=== PATIENT | female | born 1970 | race Caucasian/White ===

== ENCOUNTER 2017-04-14 12:25 | Emergency (ER) | payer SELFPAY ==
[~2017-04-14] VITALS: Ht 162.6 cm; Wt 58.5 kg
[~2017-04-14 12:25] MED LIST: FIORIC PO; LISI2.5T3 PO; MOTI25CH PO; PROM25TA5 PO; ZOFR4TAB3 PO
[2017-04-14 12:30] VITALS: BP 203/101; PULSE 77; RESP 15; TEMP 98.2; O2SAT 98
[2017-04-14 13:31] VITALS: BP 182/111; PULSE 76; RESP 14; TEMP 98.5; O2SAT 99
[2017-04-14] MEDS ORDERED: ONDA1TAB16 PO (13:37)
[2017-04-14] MEDS ORDERED: SODIUM CHLOR 0.9% 1000 ML INJ 1,000 ML IV ONE (13:40)
[2017-04-14] MEDS ORDERED: diphenhydrAMINE HCL 50 MG/ML VIAL IVP ONE (13:45)
[2017-04-14] MEDS ORDERED: SODIUM CHLORIDE 0.9% FLUSH 10 ML FLUSH IVF PRN (13:45)
[2017-04-14] MEDS ORDERED: KETOROLAC TROMETHAMINE 30 MG/ML (IVP) VIAL IVP ONE (13:45)
[2017-04-14] MEDS ORDERED: PROCHLORPERAZINE INJ 10 MG/2 ML VIAL IVP ONE (13:45)
--- NOTE | 2017-04-14 13:47 | PD ---
HPI Chief Complaint: Headache Time Seen by Provider: 13:42 Travel History International Travel<30 days: No Contact w/Intl Traveler<30days: No Traveled to known affect area: No History of Present Illness HPI 47 YO F with PMH of HTN, migraine THAO presents to the ED for evaluation of 5 day history of headache. Gradual onset while working in the yard. Endorses photophobia, N/V. Patient states this headache is similar to previous migraine. Denies vision changes, facial droop, difficulties with word finding. Patient states that her blood pressure "hasn't needed to be treated in a while." States that Imitrex causes extreme N/V. Treated at home with Tylenol with no improvement of symptoms. PFSH Past Medical History Anemia: Yes (GESTATIONAL) Diminished Hearing: No Headaches: Yes Hypertension: Yes Migraines: Yes Pneumonia: Yes ("WALKING") ?: Not : 4 Para: 3 : 1 Tubal Ligation: Yes Past Surgical History Section: Yes (X3) Other Surgery: Yes (RIGHT FOOT CALCANEOUS FX REPAIR: 1 PLATE, 9 SCREWS, CONCRETE) Social History Alcohol Use: Yes (OCCASIONAL) Tobacco Use: No Substance Use: No Allergies-Medications (Allergen,Severity, Reaction): Coded Allergies: No Known Allergies (Verified , 04/14/17) Reported Meds & Prescriptions Reported Meds & Active Scripts Active Lisinopril 5 Mg Tab 5 Mg PO BID Reported Ondansetron (Ondansetron HCl) 4 Mg Tab 4 Mg PO Q6HR Review of Systems Except as stated in HPI: all other systems reviewed are Neg Physical Exam Narrative GENERAL: Well-nourished, well-developed white female in NAD. Lying on the stretcher with her eyes closed. SKIN: Focused skin assessment warm/dry. HEAD: Normocephalic. EYES: No scleral icterus. No injection or drainage. PERRLA. EOMI. NECK: Supple, trachea midline. No JVD or lymphadenopathy. CARDIOVASCULAR: Regular rate and rhythm without murmurs, gallops, or rubs. RESPIRATORY: Breath sounds clear and equal bilaterally. No accessory muscle use. GASTROINTESTINAL: Abdomen soft, non-tender, nondistended. Active bowel sounds. MUSCULOSKELETAL: No cyanosis, or edema. Ambulatory with a normal gait. NEUROLOGICAL: Awake and alert. Cranial nerves II through XII intact. Motor and sensory grossly within normal limits. 5/5 muscle strength in all muscle groups. Normal speech. BACK: Nontender without obvious deformity. No CVA tenderness. Data Data Last Documented VS Vital Signs Date Time Temp Pulse Resp B/P Pulse Ox O2 Delivery O2 Flow Rate FiO2 04/14/17 15:20 73 14 194/94 98 Room Air 04/14/17 13:31 98.5 Orders Ecg Monitoring (04/14/17 13:40) Iv Access Insert/Monitor (04/14/17 13:40) Oximetry (04/14/17 13:40) Sodium Chloride 0.9% Flush (Ns Flush) (04/14/17 13:45) Ketorolac Inj (Toradol Inj) (04/14/17 13:45) Diphenhydramine Inj (Benadryl Inj) (04/14/17 13:45) Sodium Chlor 0.9% 1000 Ml Inj (Ns 1000 M (04/14/17 13:40) Prochlorperazine Inj (Compazine Inj) (04/14/17 13:45) Hydromorphone Pf Inj (Dilaudid Pf Inj) (04/14/17 15:00) Lisinopril (Prinivil) (04/14/17 15:45) MDM Medical Decision Making Medical Screen Exam Complete: Yes Emergency Medical Condition: Yes Differential Diagnosis Cephalgia versus migraine versus hypertension versus ICH versus other Narrative Course 47 YO F with PMH of HTN, migraine THAO presents to the ED for evaluation of 5 day history of headache. Gradual onset while working in the yard. Endorses photophobia, N/V. Patient states this headache is similar to previous migraine. Denies vision changes, facial droop, difficulties with word finding. Patient states that her blood pressure "hasn't needed to be treated in a while." Vitals reviewed. Patient's hypertensive on presentation. Physical exam reveals a nontoxic-appearing white female in no acute distress. She is lying on her side on the stretcher with her eyes closed. No focal neural deficits. I discussed the possibility of intracranial hemorrhage. The patient states that her symptoms are very similar to previous migraine headaches. She states that she's had several CTs in the past and opted to forego this evaluation at that time. IV was established. She was administered 1 L normal saline, Compazine, Benadryl and Toradol. On recheck the patient reveals only mild improvement of her symptoms. She was administered 0.5 mg of Dilaudid. On recheck she is sitting up in the bed and states that her symptoms are nearly completely resolved. I discussed the patient's ongoing hypertension with Dr. Robles. She recommends restarting lisinopril with close follow-up by the primary care provider. I discussed the plan of care with the patient. She is agreeable. She was administered 5 mg lisinopril in the ED. She is prescribed 5 mg lisinopril twice a day 30 days. She is instructed to monitor her blood pressure and follow up with the primary care provider this week, return to the ED should headache or stroke symptoms occur. She indicated understanding of instructions and is agreeable to the care plan. The patient is stable and discharged home. Diagnosis Primary Impression: Migraine Qualified Code: G43.909 - Migraine without status migrainosus, not intractable , unspecified migraine type Additional Impression: Chronic hypertension Referrals: Primary Care Physician Patient Instructions: Chronic Hypertension (ED), General Instructions, Migraine Headache (DC) Additional Instructions: Rest, hydrate. Avoid known stressors. Take lisinopril as prescribed. Monitor your BP as discussed and present to your primary care provider. Follow up with the primary care provider this week. Return to the ED for any urgent or emergent medical condition. Med/Other Pt SpecificInfo: Prescription(s) given Scripts Lisinopril 5 Mg Tab5 Mg PO BID #60 TAB Ref 0 Prov:Hyacinth Otoole MD 04/14/17 Disposition: 01 DISCHARGE HOME Condition: Stable Annita Escoto Apr 14, 2017 13:47
[2017-04-14] MEDS ORDERED: HYDROmorphone HCL PF 1 MG/ML VIAL IVS ONE (15:00)
[2017-04-14 15:08] VITALS: O2SAT 99
[2017-04-14 15:20] VITALS: BP 194/94; PULSE 73; RESP 14; O2SAT 98
[2017-04-14] MEDS ORDERED: LISI-519 PO (15:41)
[2017-04-14] MEDS ORDERED: LISINOPRIL 5 MG TAB PO ONE (15:45)
== END 2017-04-14 16:10 | disposition home or self-care (01) ==
LOC: NEPD 12:25
DX: G43.909 Migraine, unspecified, not intractable, without status migrainosus (principal); I10 Essential (primary) hypertension
CPT/HCPCS: 96361; 96374; 96375; 99284; J0780; J1170; J1200; J1885; J7030

== ENCOUNTER 2017-08-27 15:25 | Emergency (ER) | payer SELFPAY ==
[~2017-08-27] VITALS: Ht 162.6 cm; Wt 56.5 kg
[~2017-08-27 15:25] MED LIST changes: -FIORIC PO; +LISI-519 PO; -LISI2.5T3 PO; -MOTI25CH PO; +ONDA4TAB15 PO; -PROM25TA5 PO; -ZOFR4TAB3 PO
[2017-08-27 15:26] VITALS: BP 189/104; PULSE 89; RESP 20; TEMP 98.7; O2SAT 100
[2017-08-27 16:18] LABS: AUTOMATED NEUTROPHIL # 9.9 TH/MM3 (1.8-7.7); BASOPHIL # 0.1 TH/MM3 (0-0.2); BASOPHIL % 0.8 % (0.0-2.0); EOSINOPHIL # 0.3 TH/MM3 (0-0.4); EOSINOPHIL % 2.5 % (0.0-4.0); HEMATOCRIT 38.9 % (35.0-46.0); HEMO FLAGS DIFF FINAL; LYMPH % 14.6 % (9.0-44.0); LYMPHOCYTE # 1.9 TH/MM3 (1.0-4.8); MEAN CELL VOLUME 79.7 FL (80.0-100.0); MEAN CORPUSCULAR HEMOGLOBIN 26.2 PG (27.0-34.0); MEAN CORPUSCULAR HGB CONC 32.8 % (32.0-36.0); MONO % 6.4 % (0.0-8.0); NEUT % 75.7 % (16.0-70.0); PLATELET COUNT 359 TH/MM3 (150-450); RED BLOOD COUNT 4.88 MIL/MM3 (4.00-5.30); RED CELL DISTRIBUTION WIDTH 15.6 % (11.6-17.2); WHITE BLOOD COUNT 13.1 TH/MM3 (4.0-11.0)
[2017-08-27 16:29] LABS: BACTERIA, URINE RARE /hpf; BLOOD, URINE NEG (NEG); COMMENT (UR) CULT NOT INDICATED; CULTURE IF INDICATED CULT NOT INDICATED; GLUCOSE,URINE NEG (NEG); HYALINE CAST, URINE 1 /lpf (RARE); KETONE, URINE NEG (NEG); MUCUS URINE FEW /lpf (OCC); NITRITE,URINE NEG (NEG); SQUAMOUS EPITHELIAL CELL URINE 5 /hpf (0-5); URINE COLOR YELLOW (YELLW/STRAW)
[2017-08-27 16:41] LABS: APTT (PATIENT) 24.4 SEC (24.3-30.1); INTERNATIONAL NORMALIZED RATIO 0.9 RATIO
[2017-08-27 16:45] LABS: ALKALINE PHOSPHATASE 112 U/L (45-117); ALT (GPT) 17 U/L (10-53); ANION GAP 8 MEQ/L (5-15); AST (GOT) 20 U/L (15-37); BICARBONATE 27.7 MEQ/L (21.0-32.0); BLOOD UREA NITROGEN 23 MG/DL (7-18); CHLORIDE 101 MEQ/L (98-107); GLOMERULAR FILTRATION RATE 88 ML/MIN (>89); SODIUM (NA) 137 MEQ/L (136-145); TOTAL BILIRUBIN ADULT 0.2 MG/DL (0.2-1.0)
[2017-08-27] MEDS ORDERED: SODIUM CHLOR 0.9% 1000 ML INJ 1,000 ML IV ONE (17:00)
[2017-08-27] MEDS ORDERED: ONDANSETRON HCL 4 MG/2 ML VIAL IV PUSH ONE (17:00)
[2017-08-27] MEDS ORDERED: MORPHINE SULFATE 4 MG/ML INJ IV PUSH ONE (17:00)
[2017-08-27 17:07] VITALS: BP 213/99; PULSE 81; RESP 18; O2SAT 100
[2017-08-27 18:00] VITALS: BP 203/90; PULSE 80; RESP 19; O2SAT 98
--- NOTE | 2017-08-27 18:10 | RADRPT ---
EXAM DATE/TIME: 08/27/2017 17:29 1[facility] COMPARISON: No previous studies available for comparison. INDICATIONS : Right upper quadrant pain. MEDICAL HISTORY : Hypertension. Anemia. Right upper quadrant pain. SURGICAL HISTORY : Tubal ligation. section. ENCOUNTER: Initial ACUITY: 3 days PAIN SCORE: 6/10 LOCATION: Right upper quadrant MEASUREMENTS: LIVER: 16.8 cm length COMMON DUCT: 5 mm RIGHT KIDNEY: 11.4 x 5.5 x 4.3 cm FINDINGS: LIVER: Normal echotexture without focal lesion or ductal dilatation. COMMON DUCT: No intraluminal mass or stone visualized. GALLBLADDER: Contains no stones, demonstrates no wall thickening or pericholecystic fluid. PANCREAS: The visualized portions are within normal limits. RIGHT KIDNEY: No evidence of hydronephrosis, stone, or mass. CONCLUSION: Unremarkable exam. The gallbladder is within normal limits with no evidence of cholel ithiasis. Esvin Zamora MD on August 27, 2017 at 18:07 Board Certified Radiologist. This report was verified electronically.
--- NOTE | 2017-08-27 18:16 | PD ---
HPI Chief Complaint: Abdominal Pain Time Seen by Provider: 16:46 Travel History International Travel<30 days: No Contact w/Intl Traveler<30days: No Traveled to known affect area: No History of Present Illness HPI Is a 47 year-old woman who presents to the emergency department complaining of abdominal pain. She describes a dull aching pain is been ongoing for the past 3 days or so. Initially was intermittent is been constant now. She's had episodes of nausea and vomiting with it. One episode of loose stools. She's never had previous similar symptoms. Denies any history of GI problems. She's had 3 C-sections but no other abdominal surgeries. No other complaints. History Past Medical History Narrative Medical Migraines Tetanus Vaccination: > 5 Years Influenza Vaccination: No : 4 Para: 3 Social History Alcohol Use: Yes (OCCASIONAL) Tobacco Use: No Allergies-Medications (Allergen,Severity, Reaction): Coded Allergies: No Known Allergies (Verified Adverse Reaction, Unknown, 08/27/17) Reported Meds & Prescriptions Reported Meds & Active Scripts Active No Active Prescriptions or Reported Medications Review of Systems Except as stated in HPI: all other systems reviewed are Neg Physical Exam Narrative GENERAL: 47 year-old woman, appears uncomfortable but nontoxic. SKIN: Focused skin assessment warm/dry. HEAD: Atraumatic. Normocephalic. NECK: Trachea midline. No JVD. CARDIOVASCULAR: Regular rate and rhythm. No murmur appreciated. RESPIRATORY: No accessory muscle use. Clear to auscultation. Breath sounds equal bilaterally. GASTROINTESTINAL: Abdomen is flat and soft. Moderate epigastric and right upper quadrant tenderness. No rebound or guarding. MUSCULOSKELETAL: No obvious deformities. No clubbing. No cyanosis. No edema. NEUROLOGICAL: Awake and alert. No obvious cranial nerve deficits. Motor grossly within normal limits. Normal speech. PSYCHIATRIC: Appropriate mood and affect; insight and judgment normal. Data Data Last Documented VS Vital Signs Date Time Temp Pulse Resp B/P (MAP) Pulse Ox O2 Delivery O2 Flow Rate FiO2 08/27/17 18:00 80 19 203/90 (127) 98 Room Air 08/27/17 15:26 98.7 Orders Orders Complete Blood Count With Diff (08/27/17 15:44) Comprehensive Metabolic Panel (08/27/17 15:44) Lipase (08/27/17 15:44) Prothrombin Time / Inr (Pt) (08/27/17 15:44) Act Partial Throm Time (Ptt) (08/27/17 15:44) Urinalysis - C+S If Indicated (08/27/17 15:44) Us Abdomen Gallbladder (08/27/17 ) Morphine Inj (Morphine Inj) (08/27/17 17:00) Ondansetron Inj (Zofran Inj) (08/27/17 17:00) Sodium Chlor 0.9% 1000 Ml Inj (Ns 1000 M (08/27/17 17:00) Ct Abd/Pel W Iv Contrast(Rout) (08/27/17 ) Electrocardiogram (08/27/17 ) Troponin I (08/27/17 18:16) Iohexol 350 Inj (Omnipaque 350 Inj) (08/27/17 18:41) Labs Laboratory Tests Test 08/27/17 15:55 White Blood Count 13.1 TH/MM3 Red Blood Count 4.88 MIL/MM3 Hemoglobin 12.8 GM/DL Hematocrit 38.9 % Mean Corpuscular Volume 79.7 FL Mean Corpuscular Hemoglobin 26.2 PG Mean Corpuscular Hemoglobin Concent 32.8 % Red Cell Distribution Width 15.6 % Platelet Count 359 TH/MM3 Mean Platelet Volume 7.3 FL Neutrophils (%) (Auto) 75.7 % Lymphocytes (%) (Auto) 14.6 % Monocytes (%) (Auto) 6.4 % Eosinophils (%) (Auto) 2.5 % Basophils (%) (Auto) 0.8 % Neutrophils # (Auto) 9.9 TH/MM3 Lymphocytes # (Auto) 1.9 TH/MM3 Monocytes # (Auto) 0.8 TH/MM3 Eosinophils # (Auto) 0.3 TH/MM3 Basophils # (Auto) 0.1 TH/MM3 CBC Comment DIFF FINAL Differential Comment Prothrombin Time 10.0 SEC Prothromb Time International Ratio 0.9 RATIO Activated Partial Thromboplast Time 24.4 SEC Urine Color YELLOW Urine Turbidity HAZY Urine pH 6.0 Urine Specific [place] 1.027 Urine Protein TRACE mg/dL Urine Glucose (UA) NEG mg/dL Urine Ketones NEG mg/dL Urine Occult Blood NEG Urine Nitrite NEG Urine Bilirubin NEG Urine Urobilinogen LESS THAN 2.0 MG/DL Urine Leukocyte Esterase NEG Urine RBC 1 /hpf Urine WBC 2 /hpf Urine Squamous Epithelial Cells 5 /hpf Urine Bacteria RARE /hpf Urine Hyaline Casts 1 /lpf Urine Mucus FEW /lpf Microscopic Urinalysis Comment CULT NOT INDICATED Blood Urea Nitrogen 23 MG/DL Creatinine 0.71 MG/DL Random Glucose 107 MG/DL Total Protein 7.8 GM/DL Albumin 3.8 GM/DL Calcium Level 8.8 MG/DL Alkaline Phosphatase 112 U/L Aspartate Amino Transf (AST/SGOT) 20 U/L Alanine Aminotransferase (ALT/SGPT) 17 U/L Total Bilirubin 0.2 MG/DL Sodium Level 137 MEQ/L Potassium Level 4.0 MEQ/L Chloride Level 101 MEQ/L Carbon Dioxide Level 27.7 MEQ/L Anion Gap 8 MEQ/L Estimat Glomerular Filtration Rate 88 ML/MIN Troponin I LESS THAN 0.02 NG/ML Lipase 166 U/L [facility] Medical Decision Making Medical Screen Exam Complete: Yes Emergency Medical Condition: Yes Interpretation(s) LABS: CBC is remarkable for mild leukocytosis. CMP is overall unremarkable. Lipase is normal. Coags are unremarkable. UA is unremarkable. Right upper quadrant ultrasound: Negative. My review of EKG: Normal sinus rhythm at a rate of 72, minimal lateral ST changes, potentially concerning but nonspecific, no definite evidence of acute ischemia. Differential Diagnosis Cholecystitis, pancreatitis, gastritis, appendicitis, enteritis, other Narrative Course Medical decision making INITIAL cause a 47 year-old woman presents to the emergency department complaining of severe abdominal pain and mid upper abdomen. With a tender right upper quadrant. Possibly cholecystitis. Gallbladder ultrasound unremarkable. Pain is fairly severe. Time course isn't really fit for dissection. Possible renal stone. We'll check CT and lab in addition to the ultrasound. Symptoms are not really consistent with acute coronary syndrome given the diagnostic uncertainty we'll broaden her testing included EKG and troponin. EKG shows some nonspecific lateral changes. Diagnosis Primary Impression: Abdominal pain Additional Impression: Gastritis Additional Instructions: Take omeprazole as prescribed. Use Lortab sparingly as needed for severe pain. Follow-up with a GI doctor the first available appointment. Return to the emergency department for any worsening pain, or any other new or worsening symptoms. Med/Other Pt SpecificInfo: Prescription(s) given Scripts Hydrocodone-Acetaminophen (Lortab) 5-325 Mg Tab 1-2 TAB PO Q6H Y for PAIN, #12 TAB 0 Refills Prov: Ruslan Petersen MD 08/27/17 Omeprazole (Omeprazole) 40 Mg Cap 40 MG PO DAILY, #30 CAP 0 Refills Prov: Ruslan Petersen MD 08/27/17 Disposition: 01 DISCHARGE HOME Condition: Stable Ruslan Petersen MD Aug 27, 2017 18:16
[2017-08-27] MEDS ORDERED: IOHEXOL 350 MG/ML 10 ML VIAL (for RAD DIAG) IVCONTRAST ONE (18:41)
[2017-08-27] MEDS ORDERED: HYDR-3533 PO (19:17)
[2017-08-27] MEDS ORDERED: OMEP40CA2 PO (19:17)
--- NOTE | 2017-08-27 19:42 | RADRPT ---
EXAM DATE/TIME: 08/27/2017 18:37 [facility] COMPARISON: CT ABDOMEN & PELVIS W/O CONTRAST, January 24, 2012, 10:33. INDICATIONS : Abdominal pain, nausea, vomiting. Worse after eating. IV CONTRAST: 95 cc Omnipaque 350 (iohexol) IV ORAL CONTRAST: No oral contrast ingested. RADIATION DOSE: 5.02 CTDIvol (mGy) MEDICAL HISTORY : Hypertension. SURGICAL HISTORY : Tubal ligation. C sections ENCOUNTER: Initial ACUITY: 3 days PAIN SCALE: 10/10 LOCATION: Right upper quadrant TECHNIQUE: Volumetric scanning of the abdomen and pelvis was performed. Using automated exposure control and ad justment of the mA and/or kV according to patient size, radiation dose was kept as low as reasonably achievable to obtain optimal diagnostic quality images. DICOM format image data is available electro nically for review and comparison. FINDINGS: LOWER LUNGS: The visualized lower lungs are clear. LIVER: Homogeneous density without lesion. There is no dilation of the biliary tree. No calcified gallston es. SPLEEN: Normal size without lesion. PANCREAS: Within normal limits. KIDNEYS: Normal in size and shape. There is no mass, stone or hydronephrosis. ADRENAL GLANDS: Within normal limits. VASCULAR: There is no aortic aneurysm. BOWEL/MESENTERY: No oral contrast was given to imaging the sensitivity. There are multiple loops of nondilated air-con taining small bowel several small air-fluid levels. Gas and stool is noted throughout the colon. Ther e is no free air or fluid. There are scattered diverticuli noted. There is no free intraperitoneal ai r or fluid. ABDOMINAL WALL: Within normal limits. RETROPERITONEUM: There is no lymphadenopathy. BLADDER: No wall thickening or mass. REPRODUCTIVE: The uterus is prominent with hyperechoic mass in the right side of the uterus measuring up to 3.8 x 3 .3 cm in diameter. INGUINAL: There is no lymphadenopathy or hernia. MUSCULOSKELETAL: Within normal limits for patient age. CONCLUSION: 1. Mildly nonspecific, nonobstructed bowel gas pattern which may represent a mild ileus or gastroente ritis. 2. Prominent uterus with high density mass on the right most characteristic of a leiomyoma. 3. Mild diverticulosis. Esvin Zamora MD on August 27, 2017 at 19:36 Board Certified Radiologist. This report was verified electronically.
[2017-08-27 19:51] VITALS: BP 198/106; PULSE 98; RESP 19; O2SAT 98
--- NOTE | 2017-08-27 19:56 | PD ---
Physical Exam Date Seen by Provider: Aug 27, 2017 Time Seen by Provider: 19:52 Narrative Accepted in transfer of care from Dr. Petersen GENERAL: Well-developed well-nourished female in no acute distress no respiratory distress SKIN: Warm and dry. HEAD: Normocephalic. EYES: No scleral icterus. No injection or drainage. NECK: Supple, trachea midline. No JVD or lymphadenopathy. CARDIOVASCULAR: Regular rate and rhythm without murmurs, gallops, or rubs. RESPIRATORY: Breath sounds equal bilaterally. No accessory muscle use. GASTROINTESTINAL: Abdomen soft, reproducible epigastric tenderness to palpation without guarding or rebound, nondistended. MUSCULOSKELETAL: No cyanosis, or edema. BACK: Nontender without obvious deformity. No CVA tenderness. Data Data Last Documented VS Vital Signs Date Time Temp Pulse Resp B/P (MAP) Pulse Ox O2 Delivery O2 Flow Rate FiO2 08/27/17 21:06 178/91 (120) 08/27/17 19:51 98 19 98 Room Air 08/27/17 15:26 98.7 Orders Orders Complete Blood Count With Diff (08/27/17 15:44) Comprehensive Metabolic Panel (08/27/17 15:44) Lipase (08/27/17 15:44) Prothrombin Time / Inr (Pt) (08/27/17 15:44) Act Partial Throm Time (Ptt) (08/27/17 15:44) Urinalysis - C+S If Indicated (08/27/17 15:44) Us Abdomen Gallbladder (08/27/17 ) Morphine Inj (Morphine Inj) (08/27/17 17:00) Ondansetron Inj (Zofran Inj) (08/27/17 17:00) Sodium Chlor 0.9% 1000 Ml Inj (Ns 1000 M (08/27/17 17:00) Ct Abd/Pel W Iv Contrast(Rout) (08/27/17 ) Electrocardiogram (08/27/17 ) Troponin I (08/27/17 18:16) Iohexol 350 Inj (Omnipaque 350 Inj) (08/27/17 18:41) Pantoprazole Inj (Protonix Inj) (08/27/17 20:00) Ketorolac Inj (Toradol Inj) (08/27/17 20:00) Ondansetron Odt (Zofran Odt) (08/27/17 21:15) Oxycodone-Acetamin 5-325 Mg (Percocet (08/27/17 21:15) Ed Discharge Order (08/27/17 21:08) Labs Laboratory Tests Test 08/27/17 15:55 White Blood Count 13.1 TH/MM3 Red Blood Count 4.88 MIL/MM3 Hemoglobin 12.8 GM/DL Hematocrit 38.9 % Mean Corpuscular Volume 79.7 FL Mean Corpuscular Hemoglobin 26.2 PG Mean Corpuscular Hemoglobin Concent 32.8 % Red Cell Distribution Width 15.6 % Platelet Count 359 TH/MM3 Mean Platelet Volume 7.3 FL Neutrophils (%) (Auto) 75.7 % Lymphocytes (%) (Auto) 14.6 % Monocytes (%) (Auto) 6.4 % Eosinophils (%) (Auto) 2.5 % Basophils (%) (Auto) 0.8 % Neutrophils # (Auto) 9.9 TH/MM3 Lymphocytes # (Auto) 1.9 TH/MM3 Monocytes # (Auto) 0.8 TH/MM3 Eosinophils # (Auto) 0.3 TH/MM3 Basophils # (Auto) 0.1 TH/MM3 CBC Comment DIFF FINAL Differential Comment Prothrombin Time 10.0 SEC Prothromb Time International Ratio 0.9 RATIO Activated Partial Thromboplast Time 24.4 SEC Urine Color YELLOW Urine Turbidity HAZY Urine pH 6.0 Urine Specific [place] 1.027 Urine Protein TRACE mg/dL Urine Glucose (UA) NEG mg/dL Urine Ketones NEG mg/dL Urine Occult Blood NEG Urine Nitrite NEG Urine Bilirubin NEG Urine Urobilinogen LESS THAN 2.0 MG/DL Urine Leukocyte Esterase NEG Urine RBC 1 /hpf Urine WBC 2 /hpf Urine Squamous Epithelial Cells 5 /hpf Urine Bacteria RARE /hpf Urine Hyaline Casts 1 /lpf Urine Mucus FEW /lpf Microscopic Urinalysis Comment CULT NOT INDICATED Blood Urea Nitrogen 23 MG/DL Creatinine 0.71 MG/DL Random Glucose 107 MG/DL Total Protein 7.8 GM/DL Albumin 3.8 GM/DL Calcium Level 8.8 MG/DL Alkaline Phosphatase 112 U/L Aspartate Amino Transf (AST/SGOT) 20 U/L Alanine Aminotransferase (ALT/SGPT) 17 U/L Total Bilirubin 0.2 MG/DL Sodium Level 137 MEQ/L Potassium Level 4.0 MEQ/L Chloride Level 101 MEQ/L Carbon Dioxide Level 27.7 MEQ/L Anion Gap 8 MEQ/L Estimat Glomerular Filtration Rate 88 ML/MIN Troponin I LESS THAN 0.02 NG/ML Lipase 166 U/L [facility] Medical Record Reviewed: Yes Supervised Visit with SWETA: No Interpretation(s) CBC & BMP Diagram 08/27/17 15:55 Total Protein 7.8, Albumin 3.8, Calcium Level 8.8, Alkaline Phosphatase 112, Aspartate Amino Transf (AST/SGOT) 20, Alanine Aminotransferase (ALT/SGPT) 17, Total Bilirubin 0.2 Vital Signs Date Time Temp Pulse Resp B/P (MAP) Pulse Ox O2 Delivery O2 Flow Rate FiO2 08/27/17 19:51 98 19 198/106 (136) 98 Room Air 08/27/17 18:00 80 19 203/90 (127) 98 Room Air 08/27/17 17:07 81 18 213/99 (137) 100 Room Air 08/27/17 15:26 98.7 89 20 189/104 (132) 100 Room Air Differential Diagnosis Accepted in transfer of care from Dr. Petersen please refer to his dictation Narrative Course Accepted in transfer of care from Dr. Petersen for follow-up of pending CT reading with plan to discharge to home; CT reveals mild ileus or changes for gastroenteritis gallbladder identified as unremarkable; on reexamination patient remains tender in the epigastric area with slight increase bowel sounds without tinkles or groin for obstruction; patient has had normal bowel movements and flatus. Blood pressure reading checked as noted to be elevated and patient reports she generally has a marked blood pressure elevation response to pain and currently pain is 5/10 in intensity after IV morphine times one dose. Ultrasound was found to be unremarkable without evidence of gallbladder thickening dilatation or stones or ductal abnormality. Total white cell count is mild elevated at 13,000 nonspecific with normal range LFTs. After Toradol 30 mg IV and Protonix 40 mg IV patient will be reassessed and blood pressure be addressed if no response to decrease in pain. Patient states she has been diagnosed in the past with hypertension and was remotely on lisinopril but after significant weight loss has not been on any medication for blood pressure management and blood pressure is always elevated with pain because he normalizes after pain resolved area patient also given trial of oral hydration*with ice chips and progress to Gatorade patient is able to tolerate oral intake. At 9:08 PM patient reports that she is clinically improved after Toradol is taking ice chips without difficulty; patient stable for outpatient management and blood pressure started to note a downward trend; patient will not go to fill her prescriptions tonight we'll give her one time dose of Percocet 5/325 and Zofran 4 mg ODT prior to discharge. Patient is encouraged to follow-up with her primary care provider. Patient encouraged to return immediately to the emergency department for fever pain vomiting or any concerns. Patient encouraged to follow clear liquid diet for next 12-24 hours advance to bland/ [place] diet as tolerated to regular diet as tolerated. Patient with at bedside acknowledges understanding of discharge diagnosis and discharge planning. Patient requests phenergan supp for breakthrough vomiting. Diagnosis Primary Impression: Abdominal pain Qualified Codes: R10.13 - Epigastric pain Additional Impressions: Gastritis Qualified Codes: K29.70 - Gastritis, unspecified, without bleeding H/O: HTN (hypertension) Referrals: Primary Care Physician 2 days Patient Instructions: General Instructions, Gastritis (ED), Abdominal Pain (ED) Departure Forms: Tests/Procedures Additional Instruction: Take omeprazole as prescribed. Use Lortab sparingly as needed for severe pain. Follow-up with a GI doctor the first available appointment. Return to the emergency department for any worsening pain, or any other new or worsening symptoms. Recommend clear liquid diet 12-24 hours advance*as tolerated to bland/[place] diet then regular diet as tolerated Monitor blood pressures closely due to prior history of hypertension; her previous antihypertensive medication has been represcribed. Scripts Promethazine Supp (Phenergan Supp) 25 Mg Supp 25 MG RECTAL Q6H Y for NAUSEA OR VOMITING, #6 SUPP 0 Refills Prov: Claudia Forman MD 08/27/17 Lisinopril (Lisinopril) 5 Mg Tab 5 MG PO DAILY for Blood Pressure Management, #30 TAB 0 Refills Prov: Claudia Forman MD 08/27/17 Ondansetron Odt (Zofran Odt) 4 Mg Tab 4 MG SL Q6HR Y for Nausea/Vomiting, #10 TAB 0 Refills Prov: Claudia Forman MD 08/27/17 Hydrocodone-Acetaminophen (Lortab) 5-325 Mg Tab 1-2 TAB PO Q6H Y for PAIN, #12 TAB 0 Refills Prov: Ruslan Petersen MD 08/27/17 Omeprazole (Omeprazole) 40 Mg Cap 40 MG PO DAILY, #30 CAP 0 Refills Prov: Ruslan Petersen MD 08/27/17 Disposition: 01 DISCHARGE HOME Condition: Stable Claudia Forman MD Aug 27, 2017 19:56
[2017-08-27] MEDS ORDERED: KETOROLAC TROMETHAMINE 30 MG/ML (IVP) VIAL IV PUSH ONE (20:00)
[2017-08-27] MEDS ORDERED: PANTOPRAZOLE SODIUM 40 MG VIAL IV PUSH ONE (20:00)
[2017-08-27 21:06] VITALS: BP 178/91
[2017-08-27] MEDS ORDERED: LISI-519 PO (21:10)
[2017-08-27] MEDS ORDERED: PROM1SUP7 RECTAL (21:10)
[2017-08-27] MEDS ORDERED: ZOFR4TAB3 SL (21:10)
[2017-08-27] MEDS ORDERED: oxyCODONE/ACETAMINOPHEN 5 MG/325 MG TAB PO ONE (21:15)
[2017-08-27] MEDS ORDERED: ONDANSETRON ODT 4 MG TAB PO ONE (21:15)
--- NOTE | 2017-08-28 13:28 | EKG ---
Date Performed: 08/27/2017 Time Performed: 18:31:24 PTAGE: 47 years EKG: Sinus rhythm MINIMAL ST DEPRESSION BORDERLINE ECG Compared to prior tracing no significant change PREVIOUS TRACING : 01/06/2016 04.50 DOCTOR: Júnior Ross Interpretating Date/Time 08/28/2017 13:26:00
[2017-08-29] MEDS ORDERED: OMEP40CA2 PO (16:03)
[2017-08-29] MEDS ORDERED: HYDR-3533 PO (16:03)
--- NOTE | 2017-08-29 16:04 | PD ---
Physical Exam Narrative Patient came back with prescription unsigned. Data Data Last Documented VS Orders Orders Complete Blood Count With Diff (08/27/17 15:44) Comprehensive Metabolic Panel (08/27/17 15:44) Lipase (08/27/17 15:44) Prothrombin Time / Inr (Pt) (08/27/17 15:44) Act Partial Throm Time (Ptt) (08/27/17 15:44) Urinalysis - C+S If Indicated (08/27/17 15:44) Us Abdomen Gallbladder (08/27/17 ) Morphine Inj (Morphine Inj) (08/27/17 17:00) Ondansetron Inj (Zofran Inj) (08/27/17 17:00) Sodium Chlor 0.9% 1000 Ml Inj (Ns 1000 M (08/27/17 17:00) Ct Abd/Pel W Iv Contrast(Rout) (08/27/17 ) Electrocardiogram (08/27/17 ) Troponin I (08/27/17 18:16) Iohexol 350 Inj (Omnipaque 350 Inj) (08/27/17 18:41) Pantoprazole Inj (Protonix Inj) (08/27/17 20:00) Ketorolac Inj (Toradol Inj) (08/27/17 20:00) Ondansetron Odt (Zofran Odt) (08/27/17 21:15) Oxycodone-Acetamin 5-325 Mg (Percocet (08/27/17 21:15) Ed Discharge Order (08/27/17 21:08) Labs Laboratory Tests Test 08/27/17 15:55 White Blood Count 13.1 TH/MM3 Red Blood Count 4.88 MIL/MM3 Hemoglobin 12.8 GM/DL Hematocrit 38.9 % Mean Corpuscular Volume 79.7 FL Mean Corpuscular Hemoglobin 26.2 PG Mean Corpuscular Hemoglobin Concent 32.8 % Red Cell Distribution Width 15.6 % Platelet Count 359 TH/MM3 Mean Platelet Volume 7.3 FL Neutrophils (%) (Auto) 75.7 % Lymphocytes (%) (Auto) 14.6 % Monocytes (%) (Auto) 6.4 % Eosinophils (%) (Auto) 2.5 % Basophils (%) (Auto) 0.8 % Neutrophils # (Auto) 9.9 TH/MM3 Lymphocytes # (Auto) 1.9 TH/MM3 Monocytes # (Auto) 0.8 TH/MM3 Eosinophils # (Auto) 0.3 TH/MM3 Basophils # (Auto) 0.1 TH/MM3 CBC Comment DIFF FINAL Differential Comment Prothrombin Time 10.0 SEC Prothromb Time International Ratio 0.9 RATIO Activated Partial Thromboplast Time 24.4 SEC Urine Color YELLOW Urine Turbidity HAZY Urine pH 6.0 Urine Specific [place] 1.027 Urine Protein TRACE mg/dL Urine Glucose (UA) NEG mg/dL Urine Ketones NEG mg/dL Urine Occult Blood NEG Urine Nitrite NEG Urine Bilirubin NEG Urine Urobilinogen LESS THAN 2.0 MG/DL Urine Leukocyte Esterase NEG Urine RBC 1 /hpf Urine WBC 2 /hpf Urine Squamous Epithelial Cells 5 /hpf Urine Bacteria RARE /hpf Urine Hyaline Casts 1 /lpf Urine Mucus FEW /lpf Microscopic Urinalysis Comment CULT NOT INDICATED Blood Urea Nitrogen 23 MG/DL Creatinine 0.71 MG/DL Random Glucose 107 MG/DL Total Protein 7.8 GM/DL Albumin 3.8 GM/DL Calcium Level 8.8 MG/DL Alkaline Phosphatase 112 U/L Aspartate Amino Transf (AST/SGOT) 20 U/L Alanine Aminotransferase (ALT/SGPT) 17 U/L Total Bilirubin 0.2 MG/DL Sodium Level 137 MEQ/L Potassium Level 4.0 MEQ/L Chloride Level 101 MEQ/L Carbon Dioxide Level 27.7 MEQ/L Anion Gap 8 MEQ/L Estimat Glomerular Filtration Rate 88 ML/MIN Troponin I LESS THAN 0.02 NG/ML Lipase 166 U/L [facility] Supervised Visit with SWETA: No Diagnosis Primary Impression: Abdominal pain Additional Impressions: Gastritis H/O: HTN (hypertension) Referrals: Primary Care Physician 2 days Patient Instructions: General Instructions, Gastritis (ED), Abdominal Pain (ED) Departure Forms: Tests/Procedures Additional Instruction: Take omeprazole as prescribed. Use Lortab sparingly as needed for severe pain. Follow-up with a GI doctor the first available appointment. Return to the emergency department for any worsening pain, or any other new or worsening symptoms. Recommend clear liquid diet 12-24 hours advance*as tolerated to bland/[place] diet then regular diet as tolerated Monitor blood pressures closely due to prior history of hypertension; her previous antihypertensive medication has been represcribed. Scripts Hydrocodone-Acetaminophen (Lortab) 5-325 Mg Tab 1-2 TAB PO Q6H Y for PAIN, #12 TAB 0 Refills Prov: Joseph Martin MD 08/29/17 Omeprazole (Omeprazole) 40 Mg Cap 40 MG PO DAILY, #30 CAP 0 Refills Prov: Joseph Martin MD 08/29/17 Promethazine Supp (Phenergan Supp) 25 Mg Supp 25 MG RECTAL Q6H Y for NAUSEA OR VOMITING, #6 SUPP 0 Refills Prov: Claudia Forman MD 08/27/17 Lisinopril (Lisinopril) 5 Mg Tab 5 MG PO DAILY for Blood Pressure Management, #30 TAB 0 Refills Prov: Claudia Forman MD 08/27/17 Ondansetron Odt (Zofran Odt) 4 Mg Tab 4 MG SL Q6HR Y for Nausea/Vomiting, #10 TAB 0 Refills Prov: Claudia Forman MD 08/27/17 Disposition: 01 DISCHARGE HOME Condition: Stable Joseph Martin MD Aug 29, 2017 16:04
== END 2017-08-27 21:20 | disposition home or self-care (01) ==
LOC: NEPC 15:25
DX: K29.70 Gastritis, unspecified, without bleeding (principal); I10 Essential (primary) hypertension
CPT/HCPCS: 74177; 76705; 80053; 81001; 83690; 84484; 85025; 85610; 85730; 93005; 96361; 96374; 96375; 99285; C9113; J1885; J2270; J2405; J7030; Q9967